=== PATIENT | female | born 1945 | race Caucasian/White ===

== ENCOUNTER 2019-03-20 10:15 | Emergency (ER) | payer MEDICARE, OTHER | END 2019-03-20 11:21 | disposition home or self-care (01) | LOC: JERFT 10:15 ==

== ENCOUNTER 2022-09-07 10:52 | Observation (INO) | payer MEDICARE, OTHER ==
[2022-09-07] MEDS ORDERED: ACETAMINOPHEN 500 MG TABLET (FP) PO ONE (13:37)
[2022-09-07] MEDS ORDERED: ACETAMINOPHEN 325 MG TABLET (FP) ONE (13:57)
[2022-09-07 14:37] LABS: HEMATOCRIT 41.2 % (32.4-45.2); HEMOGLOBIN 13.2 GM/dL (10.7-15.3); MCH 27.8 pg (25.7-33.7); MCHC 31.9 g/dl (32.0-36.0); MEAN CELL VOLUME 86.9 fl (80-96); MEAN PLT VOLUME 9.4 fl (7.5-11.1); PLATELET COUNT 255 10^3/uL (134-434); RBC 4.74 M/mm3 (3.60-5.2); RDW 14.4 % (11.6-15.6); WHITE BLOOD COUNT 3.9 K/mm3 (4.0-10.0)
[2022-09-07 14:54] LABS: CALCIUM 9.9 mg/dL (8.5-10.1)
[2022-09-07 14:55] LABS: ALBUMIN 4.6 g/dl (3.4-5.0); BLOOD UREA NITROGEN 39.4 mg/dL (7-18)
[2022-09-07 14:57] LABS: CREATININE 1.6 mg/dL (0.55-1.3)
[2022-09-07 15:00] LABS: BILIRUBIN,TOTAL 0.3 mg/dL (0.2-1)
[2022-09-07] MEDS ORDERED: SODIUM CHLORIDE 0.9% 500 ML INFUS.BAG IV ONE (16:45)
[2022-09-07] MEDS: INSULIN SLIDING SCALE (NOVOLOG) 1 VIAL SQ SCH (18:16)
[2022-09-07] MEDS: SODIUM CHLORIDE 1,000 ML IV SCH (18:46)
[2022-09-07] MEDS ORDERED: ALBUTEROL SO4 2.5/IPRATROPIUM 0.5 INH SOL 3 ML VIAL.NEB. NEB ONE (18:51)
[2022-09-07] MEDS ORDERED: ACETAMINOPHEN 1000 MG/100 ML BAG IVPB ONE ×2 (21:00→23:45)
[2022-09-07] MEDS ORDERED: ATORVASTATIN CA 40 MG TABLET (FP) PO SCH (22:00)
[2022-09-07 23:50] VITALS: RESP 20; BMI 23.1
[2022-09-08] MEDS ORDERED: ACETAMINOPHEN 325 MG TABLET (FP) PO PRN (06:00)
[2022-09-08] MEDS: SODIUM CHLORIDE 1,000 ML IV SCH (06:22)
[2022-09-08] MEDS: INSULIN SLIDING SCALE (NOVOLOG) 1 VIAL SQ SCH ×2 (06:27→11:12)
[2022-09-08] MEDS ORDERED: PATIENT'S OWN MEDICATION (NON-FORMULARY) (Empagliflozin 25 MG Tablet) PO SCH (10:00)
[2022-09-08] MEDS ORDERED: PANTOPRAZOLE 40 MG TABLET PO SCH (10:00)
[2022-09-08] MEDS ORDERED: INSULIN (NOVOLOG) ASPART 100 UNITS/ML 10ML VIAL ONE (11:36)
[2022-09-08 12:14] LABS: BASO % 0.4 % (0-2.0); EOS % 3.4 % (0-4.5); HEMATOCRIT 35.5 % (32.4-45.2); HEMOGLOBIN 11.3 GM/dL (10.7-15.3); LYMPH % 51.3 % (8-40); MCH 27.5 pg (25.7-33.7); MCHC 31.8 g/dl (32.0-36.0); MEAN CELL VOLUME 86.5 fl (80-96); MEAN PLT VOLUME 9.4 fl (7.5-11.1); MONO % 12.6 % (3.8-10.2); NEUT % 32.3 % (42.8-82.8); PLATELET COUNT 214 10^3/uL (134-434); RDW 14.3 % (11.6-15.6); WHITE BLOOD COUNT 2.8 K/mm3 (4.0-10.0)
[2022-09-08 13:45] VITALS: BP 136/73; PULSE 70; TEMP 98
[2022-09-08 13:52] LABS: CREATININE 1.5 mg/dL (0.55-1.3)
[2022-09-08 13:54] LABS: CALCIUM 8.9 mg/dL (8.5-10.1)
[2022-09-08 13:55] LABS: BLOOD UREA NITROGEN 37.5 mg/dL (7-18)
== END 2022-09-08 19:10 | disposition home or self-care (01) ==
LOC: JER 10:52 → UNDOADMOB 16:45 → JERBED 16:45 → OBSVTOIN 17:14 → INTOOBSV 17:14 → J6S 23:33 → JERBED 23:33 → J6S 09-08 13:25
PROVIDERS: ADMIT Internal Medicine; ATTEND Internal Medicine
PROC: 3E033NZ Introduction of Analgesics, Hypnotics, Sedatives into Peripheral Vein, Percutaneous Approach (ICD-10-PCS; principal; 2022-09-08)
PROC: 3E013VG Introduction of Insulin into Subcutaneous Tissue, Percutaneous Approach (ICD-10-PCS; 2022-09-08)
PROC: 3E0337Z Introduction of Electrolytic and Water Balance Substance into Peripheral Vein, Percutaneous Approach (ICD-10-PCS; 2022-09-08)
DX: S22.32XA Fracture of one rib, left side, initial encounter for closed fracture (principal); S27.9XXA Injury of unspecified intrathoracic organ, initial encounter; W18.39XA Other fall on same level, initial encounter; Y93.89 Activity, other specified; Y92.89 Other specified places as the place of occurrence of the external cause; R10.31 Right lower quadrant pain; E11.9 Type 2 diabetes mellitus without complications; R10.32 Left lower quadrant pain; I10 Essential (primary) hypertension; R07.89 Other chest pain; N17.9 Acute kidney failure, unspecified
CPT/HCPCS: 36415; 71250-TC; 80048; 80053; 82962; 83036; 84443; 84484; 85025; 85027; 93005; 93010; 96361; 96372; 96374; 97116-GP; 97161-GP; 99285-25; C9803-CS; G0378; U0003; U0005

== ENCOUNTER 2025-07-04 10:15 | Emergency (ER) | payer MEDICARE, OTHER ==
[2025-07-04 10:25] VITALS: RESP 18; BMI 24.9
[2025-07-04 12:39] LABS: ABSOLUTE IMMATURE GRANULOCYTES 0.01 x10^3/uL (0.0-0.031); BASOPHILS # 0.03 x10^3/uL (0.01-0.08); EOSINOPHIL % 2.8 % (0.7-5.8); EOSINOPHILS # 0.09 x10^3/uL (0.04-0.36); MCHC 31.3 g/dl (32.2-35.5); MEAN CELL VOLUME 88.4 fl (79.4-94.8); MEAN PLT VOLUME 11.0 fl (9.4-12.3); MONOCYTE # 0.32 x10^3/uL (0.24-0.86); MONOCYTE % 10.0 % (4.7-12.5); RDW 13.2 % (12.4-16.6)
[2025-07-04 13:10] LABS: GLUCOSE,RANDOM 142.0 mg/dL (74-106); TOT PROT 7.9 g/dl (6.4-8.2)
[2025-07-04 13:11] LABS: CO2 22.0 mmol/L (21-32)
[2025-07-04 13:13] LABS: ALK PHOS 70.0 U/L (40-150)
[2025-07-04 13:15] LABS: CREATININE 1.44 mg/dL (0.55-1.3); SGOT/AST 29.0 U/L (5-34); SGPT/ALT 22.0 U/L (0-55)
[2025-07-04 13:36] LABS: HCV DIAGNOSTIC IN-HOUSE W/RFLX NON-REACTIVE (NONREACTIVE); HIV INTERPRETATION NEGATIVE (NEGATIVE)
[2025-07-04] MEDS ORDERED: MAG HYDROX/AL HYDROX/SIMETH 30 ML UNIT-DOSE CUP ONE (15:31)
[2025-07-04] MEDS ORDERED: FAMOTIDINE 10 MG TABLET ONE (15:31)
[2025-07-04] MEDS: FAMOTIDINE 10 MG TABLET PO ONE (15:37)
[2025-07-04] MEDS: MAG HYDROX/AL HYDROX/SIMETH 30 ML UNIT-DOSE CUP PO ONE (15:37)
[2025-07-04 19:38] VITALS: BP 150/79; PULSE 80; TEMP 98.7
== END 2025-07-04 19:38 | disposition home or self-care (01) ==
LOC: JER 10:15
DX: R09.A2 Foreign body sensation, throat (principal); R05.9 Cough, unspecified; R06.7 Sneezing; R10.9 Unspecified abdominal pain
CPT/HCPCS: 36415; 70491-TC; 71046-TC-FY; 80053; 83690; 85025; 86803; 87389; 99285-25